=== PATIENT | male | born 1955 | race Caucasian/White ===

== ENCOUNTER → 2023-03-17 13:31 | Outpatient (REF) | payer MEDICARE, OTHER, SELFPAY | LOC: RAD 13:31 | PROVIDERS: ATTENDING PHYSICIAN Internal Medicine Critical Care Medicine; FAMILY PHYSICIAN Internal Medicine | DX: R05.1 Acute cough (principal) | CPT/HCPCS: 71046 ==

== ENCOUNTER 2023-06-08 11:03 | Emergency (ER) | payer MEDICARE, OTHER, SELFPAY ==
[2023-06-08 11:16] VITALS: BP 143/80
--- NOTE | 2023-06-08 11:37 | ED.GENMED ---
History of Present Illness
<Chris Carlton MD - Last Filed: 06/08/23 14:01>
General
Chief Complaint: Skin Surface Trauma
Time Seen by Provider: 06/08/23 11:19
<Danita Raymundo PA-C - Last Filed: 06/08/23 13:16>
General
Source: patient
Exam Limitations: none
Nursing documentation reviewed up to this point in time: agreed with
Travel History
Have you had any contact with someone who has COVID-19?: No
Do you have any symptoms of coronavirus? Fever > 100 degrees, chills, cough, shortness of breath, sore throat, loss of taste or smell, muscle aches, or headache?: No
History of Present Illness
History of Present Illness:
68-year-old male past medical history of hypertension, hyperlipidemia presenting to the emergency department today with a laceration to his right anterior otoole. Patient states that he was carrying a heavy chair down the stairs of his porch when he
tripped and scraped his leg across the side of the porch that was sharp. Patient states that when he fell, he did not have a head strike. Patient denies taking any anticoagulation medication. Patient denies any dizziness, lightheadedness, chest
pain, shortness of breath. Patient [place] any neck pain. Patient was able to ambulate after the fall and has no pain with ambulation. Patient's friend drove him to the emergency department today. Patient states that he is not up-to-date on his
tetanus vaccine he cannot recall the last time he had 1.
Review of Systems
<Danita Raymundo PA-C - Last Filed: 06/08/23 13:16>
Review of Systems
All Other Systems: ROS reviewed and negative except as documented in HPI and ROS
Phy Exam
<Danita Raymundo PA-C - Last Filed: 06/08/23 13:16>
Physical Exam
Physical Exam:
General: Patient is well appearing and in no acute distress; non-toxic
Skin: There is a 7 cm curved laceration on the right anterior otoole with a well-vascularized flap. It is not actively bleeding.
Head: Normocephalic, atraumatic
Eyes: Sclera non-icteric. EOMs intact.
Cardiac: Regular rate
Peripheral Vascular: No lower extremity swelling, 2+ dorsalis pedis and posterior tibial pulses bilaterally.
Pulm: Normal respiratory effort
Musculoskeletal: Full range of motion of bilateral lower extremities. No pain with passive range of motion of the right lower extremity. Patient is no bony tenderness palpation.
Neuro: CN II-XII intact, no focal neurologic deficits. 5 out of 5 strength in lower extremities bilaterally.
Psychiatric: Appropriate mood and affect.
Course
<Chris Carlton MD - Last Filed: 06/08/23 14:01>
Orders/Labs/Results
Orders:
Orders
06/08/23 11:34
Tetanus/Diphth/Acelpertussis [Adacel] 0.5 ml IM .ONCE ONE
Vital Signs
Initial and Last Documented VS:
Initial Vital Signs
Temp Pulse Resp BP Pulse Ox
98.3 F 82 16 143/80 98
06/08/23 11:16 06/08/23 11:16 06/08/23 11:16 06/08/23 11:16 06/08/23 11:16
Last Documented Vital Signs
Temp Pulse Resp BP Pulse Ox
98.3 F 82 16 143/80 98
06/08/23 11:16 06/08/23 11:16 06/08/23 11:16 06/08/23 11:16 06/08/23 11:16
<Danita Raymundo PA-C - Last Filed: 06/08/23 13:16>
Orders/Labs/Results
Orders:
Orders
06/08/23 11:34
Tetanus/Diphth/Acelpertussis [Adacel] 0.5 ml IM .ONCE ONE
Vital Signs
Initial and Last Documented VS:
Initial Vital Signs
Temp Pulse Resp BP Pulse Ox
98.3 F 82 16 143/80 98
06/08/23 11:16 06/08/23 11:16 06/08/23 11:16 06/08/23 11:16 06/08/23 11:16
Last Documented Vital Signs
Temp Pulse Resp BP Pulse Ox
98.3 F 82 16 143/80 98
06/08/23 11:16 06/08/23 11:16 06/08/23 11:16 06/08/23 11:16 06/08/23 11:16
Procedures
<Danita Raymundo PA-C - Last Filed: 06/08/23 13:16>
Laceration Closure
Right Anterior Leg:
Status of Wound: clean
Size of Wound in cm: 7
Description of Wound Edges: flap-well vascularized
Preparation: cleaned with saline and cleaned with Betadine
Anesthesia: 1% Lidocaine with epi
Revision/Debridement: routine- no revision
Wound exploration: explored to base- no FB
Type of Closure: single layer closure
Skin Closure Material: 4-0 prolene
Number of sutures: 12
<Chris Carlton MD - Last Filed: 06/08/23 14:01>
*Radiology
Radiology exam reviewed: radiology read reviewed (No acute findings. Small amount of air in the bladder)
*Pulse Oximetry
Patient hypoxic: no
<Danita Raymundo PA-C - Last Filed: 06/08/23 13:16>
*Critical Care Note
Total Time (30-74mins, 75-104mins- exclusive of procedures): Not Applicable
<Danita Raymundo PA-C - Last Filed: 06/08/23 13:16>
Patient Management
Escalation/DeEscalation of care consider admission/obs:
68-year-old male past medical history of hypertension, hyperlipidemia presenting to the emergency department today with a laceration to his right anterior otoole. He does take aspirin daily but is on no anticoagulation medications. On exam, patient
has a 7 cm laceration to his anterior otoole. Patient's tetanus vaccine is updated. His wound was repaired with twelve 4-0 Prolene sutures. Patient tolerated the procedure well. Patient aware of return precautions, patient medically stable for
discharge.
ED Attending Note
<Chris Carlton MD - Last Filed: 06/08/23 14:01>
ED Attending Note
Patient seen and examined by attending physician: Yes
I performed the substantive portion of visit, reviewed & personally made and approve the management plan that is documented in note by myself or LAUREN.: Yes
ED Attending Note:
68-year-old male hit his legs while working on a deck. Laceration of the right leg. Abrasion of the left leg. No pain with weightbearing. Last tetanus greater than 10.
On exam patient has a large laceration to the anterior right calf. Motor or sensory neurovascular intact. Superficial abrasions to the left leg. No bony tenderness. No other injury.
Sterilely sutured by our physician certified surgical first assistant. The student did help and patient was asked if this was okay which she was.... Suturing was checked multiple times during the process. Progressing well
<Danita Raymundo PA-C - Last Filed: 06/08/23 13:16>
-
Portions of this chart may have been created with voice recognition software.� Occasional wrong word or��sound alike� substitutions may have occurred due to the inherent limitations of voice recognition software.
Discharge Plan
Departure
Patient Disposition: Home (Routine Discharge)
Date of Disposition: 06/08/23
Time of Disposition: 13:03
Patient with high blood pressure during this ER visit?: Yes
Condition: Good
Discharge Problem:
Laceration of leg
Instructions: Wound Care (DC), Laceration Repair With Stitches (DC), BLOOD PRESSURE
Prescriptions:
No Action
ascorbic acid (vitamin C) [Vitamin C] 500 MG tablet
500 mg PO DAILY
loratadine 10 MG tablet
10 mg PO DAILY
Centrum Men 1 EACH tablet
1 ea PO DAILY
vitamin E (dl, acetate) 1,000 UNIT capsule
1,000 unit PO DAILY
omega [id number]-fish oil 1 EACH capsule
1 ea PO DAILY
atorvastatin 10 MG tablet
10 mg PO QPM
trazodone 50 mg Tablet
50 mg PO HS
tramadol 50 mg Tablet
50 mg PO Q6H PRN (Reason: pain)
simethicone [Gas-X Extra Strength] 125 mg Capsule
250 mg PO DIRECTED
Sutab 1.479-0.188- 0.225 gram Tablet
PO DIRECTED
Referrals:
Terrence Mensah, DO [Family Provider] -
Activity Restrictions/Additional Instructions:
Please keep the wound dry for 24 to 48 hours. After this time, you can wash the wound with mild soap and water.
You can apply antibiotic ointment or Vaseline once daily and change the dressing once daily. You can wash the wound with mild soap and water. The Steri-Strips will fall off on their own.
Please return to the emergency department should you experience fevers or chills, intractable vomiting, purulent drainage from the wound, surrounding redness around the wound, or any other signs or symptoms concerning to you.
Please return in 10-12 days to have your wound reassessed and to have the stitches removed.
Interventions
Interventions:
*General Assessment Last Done: 06/08/23 13:24
*ED COVID-19 Vaccine History Last Done: 06/08/23 11:16
*Nursing Disposition Last Done: 06/08/23 13:24
ED-Skin Assessment Last Done: 06/08/23 11:25
Discharge Date and Time
Discharge Date/Time: 06/08/23 13:25
Print Language: [email or web address]
[2023-06-08] MEDS: ADACEL 0.5 ML IM (12:06)
== END 2023-06-08 13:25 | disposition home or self-care (01) ==
LOC: EMR 11:03
PROVIDERS: EMERGENCY PHYSICIAN Emergency Medicine; FAMILY PHYSICIAN Internal Medicine
DX: S81.811A Laceration without foreign body, right lower leg, initial encounter (principal); W19.XXXA Unspecified fall, initial encounter; Z23 Encounter for immunization; E78.00 Pure hypercholesterolemia, unspecified; I10 Essential (primary) hypertension
CPT/HCPCS: 99282; 12002; 90471; 90715

== ENCOUNTER → 2023-06-28 11:49 | Outpatient (REF) | payer MEDICARE, OTHER, SELFPAY | LOC: WOUND 11:49 | PROVIDERS: ATTENDING PHYSICIAN Surgery; FAMILY PHYSICIAN Internal Medicine | DX: L97.812 Non-pressure chronic ulcer of other part of right lower leg with fat layer exposed (principal); S81.811A Laceration without foreign body, right lower leg, initial encounter; K21.9 Gastro-esophageal reflux disease without esophagitis; W01.0XXA Fall on same level from slipping, tripping and stumbling without subsequent striking against object, initial encounter; Y92.008 Other place in unspecified non-institutional (private) residence as the place of occurrence of the external cause | CPT/HCPCS: 11042; 11045; 99203 ==

== ENCOUNTER → 2023-07-07 14:44 | Outpatient (REF) | payer MEDICARE, OTHER, SELFPAY | LOC: WOUND 14:44 | PROVIDERS: ATTENDING PHYSICIAN Surgery; FAMILY PHYSICIAN Internal Medicine | DX: L97.812 Non-pressure chronic ulcer of other part of right lower leg with fat layer exposed (principal); S81.811A Laceration without foreign body, right lower leg, initial encounter; K21.9 Gastro-esophageal reflux disease without esophagitis; W01.0XXA Fall on same level from slipping, tripping and stumbling without subsequent striking against object, initial encounter | CPT/HCPCS: 11042 ==

== ENCOUNTER → 2023-07-14 09:54 | Outpatient (REF) | payer MEDICARE, OTHER, SELFPAY | LOC: WOUND 09:54 | PROVIDERS: ATTENDING PHYSICIAN Surgery; FAMILY PHYSICIAN Internal Medicine | DX: L97.812 Non-pressure chronic ulcer of other part of right lower leg with fat layer exposed (principal); S81.811A Laceration without foreign body, right lower leg, initial encounter; K21.9 Gastro-esophageal reflux disease without esophagitis; X58.XXXA Exposure to other specified factors, initial encounter | CPT/HCPCS: 11042 ==

== ENCOUNTER → 2023-07-21 10:23 | Outpatient (REF) | payer MEDICARE, OTHER, SELFPAY | LOC: WOUND 10:23 | PROVIDERS: ATTENDING PHYSICIAN Surgery; FAMILY PHYSICIAN Internal Medicine | DX: L97.812 Non-pressure chronic ulcer of other part of right lower leg with fat layer exposed (principal); S81.811A Laceration without foreign body, right lower leg, initial encounter; K21.9 Gastro-esophageal reflux disease without esophagitis; X58.XXXA Exposure to other specified factors, initial encounter | CPT/HCPCS: 11042 ==

== ENCOUNTER → 2023-08-04 09:03 | Outpatient (REF) | payer MEDICARE, OTHER, SELFPAY | LOC: WOUND 09:03 | PROVIDERS: ATTENDING PHYSICIAN Surgery; FAMILY PHYSICIAN Internal Medicine | DX: L97.812 Non-pressure chronic ulcer of other part of right lower leg with fat layer exposed (principal); S81.811A Laceration without foreign body, right lower leg, initial encounter; X58.XXXA Exposure to other specified factors, initial encounter | CPT/HCPCS: 99212 ==

== ENCOUNTER → 2023-12-23 11:34 | Outpatient (REF) | payer MEDICARE, OTHER, SELFPAY | LOC: RAD 11:34 | PROVIDERS: ATTENDING PHYSICIAN Internal Medicine Critical Care Medicine; FAMILY PHYSICIAN Internal Medicine | DX: R09.89 Other specified symptoms and signs involving the circulatory and respiratory systems (principal) | CPT/HCPCS: 71046 ==